=== PATIENT | male | born 1980 | race Caucasian/White ===

== ENCOUNTER 2017-11-24 20:49 | Emergency (ER) | payer MEDICARE ==
[2017-11-24] MEDS ORDERED: Amoxicillin/Potassium Clav 875 MG TAB ONE (21:12)
[2017-11-24] MEDS ORDERED: Ibuprofen 800 MG TAB ONE (21:12)
[2017-11-24] MEDS ORDERED: methylPREDNISolone Sod Succ/PF 125 MG/2 ML VIAL ONE ×2 (21:12→21:13)
[2017-11-24] MEDS ORDERED: Sterile Water 10 ML ONE (21:14)
== END 2017-11-24 20:59 | disposition home or self-care (01) ==
LOC: MADERS 20:49
DX: J20.9 Acute bronchitis, unspecified (principal); K21.9 Gastro-esophageal reflux disease without esophagitis; G47.30 Sleep apnea, unspecified; F32.9 Major depressive disorder, single episode, unspecified; F43.10 Post-traumatic stress disorder, unspecified; F17.210 Nicotine dependence, cigarettes, uncomplicated; Z79.899 Other long term (current) drug therapy; Z79.84 Long term (current) use of oral hypoglycemic drugs
CPT/HCPCS: 96372; A4216; J2930

== ENCOUNTER 2017-12-17 16:12 | Emergency (ER) | payer MEDICARE ==
--- NOTE | 2017-12-17 17:10 | RAD ---
CHEST 2 VIEWS: Date: 12/17/17 HISTORY: Cough. COMPARISON: None. FINDINGS: Heart size upper limits of normal. No focal air space consolidation, pneumothorax, or effusion. Mild prominence of the pulmonary hilum. IMPRESSION: Mild dilatation of the hilum, likely dilated pulmonary arteries. POS: [facility]
== END 2017-12-17 17:08 | disposition home or self-care (01) ==
LOC: MADERS 16:12
DX: J06.9 Acute upper respiratory infection, unspecified (principal); K21.9 Gastro-esophageal reflux disease without esophagitis; F32.9 Major depressive disorder, single episode, unspecified; F43.10 Post-traumatic stress disorder, unspecified; F17.210 Nicotine dependence, cigarettes, uncomplicated; Z79.899 Other long term (current) drug therapy; Z79.84 Long term (current) use of oral hypoglycemic drugs
CPT/HCPCS: 71046

== ENCOUNTER 2018-05-16 08:11 | Emergency (ER) | payer MEDICARE ==
--- NOTE | 2018-05-16 09:21 | RAD ---
LEFT FOREARM 2 VIEWS: Date: 05/16/18 HISTORY: Injury, left forearm pain. FINDINGS/IMPRESSION: There are postop changes and metallic hardware of fusion of the radiocarpal joints. No acute fracture is seen. POS: [facility]
[2018-05-16] MEDS ORDERED: Adacel (T-DAP) 0.5 ML SYRINGE ONE (09:36)
[2018-05-16] MEDS ORDERED: Ibuprofen 800 MG TAB ONE (09:36)
--- NOTE | 2018-05-16 10:01 | RAD ---
LEFT HAND 3 VIEWS: Date: 05/16/18 HISTORY: Injury. COMPARISON: None. FINDINGS: There is a small chip fracture along the medial margin of the index finger metacarpal head. Arthrodes is plate and screw fixation of the wrist. Partial backing out of the distalmost screw of the middle p halanx. IMPRESSION: 1. Small chip fracture along the medial margin of the index finger metacarpal head. 2. 1-2 mm partial backing out of the distalmost medullary screw of the wrist arthrodesis plate. POS: [facility]
== END 2018-05-16 09:55 | disposition home or self-care (01) ==
LOC: MADERS 08:11
DX: S62.361A Nondisplaced fracture of neck of second metacarpal bone, left hand, initial encounter for closed fracture (principal); T22.012A Burn of unspecified degree of left forearm, initial encounter; K21.9 Gastro-esophageal reflux disease without esophagitis; G47.30 Sleep apnea, unspecified; F32.9 Major depressive disorder, single episode, unspecified; F43.10 Post-traumatic stress disorder, unspecified; F17.210 Nicotine dependence, cigarettes, uncomplicated; Z79.899 Other long term (current) drug therapy; Z79.84 Long term (current) use of oral hypoglycemic drugs; V43.52XA Car driver injured in collision with other type car in traffic accident, initial encounter
CPT/HCPCS: 90471; 90715; Q4049